=== PATIENT | male | born 1990 | race Caucasian/White ===

== ENCOUNTER 2017-01-03 15:08 | Outpatient (CLI) | payer OTHER ==
[2017-01-03] MEDS ORDERED: BARIUM SULFATE 135 ML SUSP.RECON (E-Z-HD) PO ONE (15:40)
== END 2017-01-03 20:51 | disposition home or self-care (01) ==
LOC: SRD 15:08
PROVIDERS: ATTEND Otolaryngology
DX: K21.9 Gastro-esophageal reflux disease without esophagitis (principal)
CPT/HCPCS: 74220-TC